=== PATIENT | female | born 1940 | race Caucasian/White ===

== ENCOUNTER 2023-10-19 02:52 | Emergency (ER) | payer MEDICARE, SELFPAY ==
[2023-10-19 02:53] VITALS: BMI 23.7
[2023-10-19 02:56] VITALS: BP 184/79
[2023-10-19 02:58] VITALS: BP 184/79
[2023-10-19 03:00] VITALS: BP 181/83
[2023-10-19 03:32] LABS: INR 1.04; PT 13.6 Sec (11.4-14.6)
[2023-10-19 03:38] LABS: % Eosinophils 5.3 % (0-6); % Immature Granulocytes 0.4 % (0-0.5); % Lymphocytes 36.2 % (20.5-51.1); % Monocytes 9.5 % (1.7-9.3); % Neutrophils 47.6 % (42.2-75.2); Absolute Basophils 0.1 10^3/uL (0-0.2); Absolute Eosinophils 0.4 10^3/uL (0-0.7); Absolute Lymphocytes 2.8 10^3/uL (1.2-3.4); Absolute Monocytes 0.7 10^3/uL (0.1-0.6); Absolute Neutrophils 3.7 10^3/uL (1.4-6.5); Hematocrit 26.6 % (37.0-47.0); Hemoglobin 9.9 g/dL (12.0-16.0); Mean Corp Hgb Conc. 37.2 g/dL (33.0-37.0); Mean Corpuscular Hgb 31.9 pg (27.0-31.0); Mean Corpuscular Volume 85.8 fL (81.0-99.0); Mean Platelet Volume 9.6 fL (7.4-10.4); Nucleated Red Blood Cells % 0 %; Platelet Count 175 10^3/uL (130-400); Red Cell Dist. Width 12.1 % (11.5-14.5); White Blood Cell Count 7.8 10^3/uL (4.8-10.8)
[2023-10-19 03:39] LABS: ALT (SGPT) 25 U/L (0-35); AST (SGOT) 38 U/L (14-36); Albumin 4.4 g/dl (3.5-5.0); Alkaline Phosphatase 97 U/L (38-126); Blood Urea Nitrogen 38 mg/dl (7-17); Calcium 10.3 mg/dl (8.4-10.2); Carbon Dioxide 19 mmol/L (22-30); Chloride 96 mmol/L (98-107); Estimated Creatinine Clearance 14 ml/min; Glucose 88 mg/dl (70-99); Potassium 4.2 mmol/L (3.5-5.1); Sodium 127 mmol/L (135-145); Total Bilirubin 0.3 mg/dl (0.2-1.3); eGFR 21.57
[2023-10-19 03:50] LABS: Troponin I 0.016 ng/ml
[2023-10-19 05:00] VITALS: BP 120/51
[2023-10-19 06:04] VITALS: BP 129/64
[2023-10-19 06:08] LABS: Troponin I 0.013 ng/ml
--- NOTE | 2023-10-19 06:26 | ED.GENMED ---
History of Present Illness
General
Chief Complaint: Chest Pain
Source: patient and family
Exam Limitations: none
Time Seen by Provider: 10/19/23 02:56
Nursing documentation reviewed up to this point in time: agreed with
History of Present Illness
History of Present Illness:
Pleasant 83-year-old female presents with chest pain in the upper left portion of her chest. She states that it radiates into her arm. She does report some shortness of breath. States that this feels like similar episodes of reflux. She took 324
mg of baby aspirin and came into the emergency department. She states that upon arrival symptoms had resolved.
Review of Systems
Review of Systems
Allergies reviewed?: Yes
Other source history: family
All Other Systems: ROS reviewed and negative except as documented in HPI and ROS
Constitutional: Reports no symptoms
EENT: Reports no symptoms
Respiratory: Reports no symptoms
Cardiac: Reports chest pain
ABD/GI: Reports no symptoms
: Reports no symptoms
Musculoskeletal: Reports no symptoms
Skin: Reports no symptoms
Neurological: Reports no symptoms
Endocrine: Reports no symptoms
Hematologic/Lymphatic: Reports no symptoms
Psychiatric: Reports no symptoms
Phy Exam
General Physical Exam
General Presentation: well appearing and no apparent distress
General Skin: warm and dry
General Habitus: normal
General Mental: alert
General Hydration: appears well hydrated
ENT Exam
ENT Exam: EOMI, pharynx normal, neck supple and normocephalic
Eye Exam
Eye Exam: PERRL, cornea clear and conjunctiva normal
Cardiovascular Exam
Cardiovascular Exam: regular rate/rhythm, no edema, no murmur and normal peripheral pulses
Pulmonary Exam
Pulmonary Exam: lungs clear, no respiratory distress, no rales, no crackles, no rhonchi, no stridor, no wheezing and no cough
Gastrointestinal Exam
Gastrointestinal Exam: normal bowel sounds, non tender, soft, no organomegaly, no pulsatile mass and non distended
Neurological Exam
Neurological Exam: alert, oriented x3, no motor deficits and speech normal
Musculoskeletal Exam
Musculoskeletal Exam: full ROM and no edema
Skin Exam
Skin Exam: normal color, warm/dry, no rash and no petechia
Psychiatric Exam
Psychiatric Exam: normal mood/affect
Scores
Heart Score for Chest Pain Patients
STEMI patient?: No
History: Slightly or Non-Suspicious
ECG: Normal
Age: >/= 65 years
Risk Factors: 1 or 2 Risk Factors
Troponin: </= Normal Limit
Heart Score for Chest Pain Patients: 3
Heart Score Risk: 2.5% MACE over next 6 weeks
Course
Orders/Labs/Results
Orders:
Orders
10/19/23 02:54
Electrocardiogram (*1) Urgent
Reason for Study: Chest Pain
Cardiac Monitoring- Treatment ONCE
EKG- Treatment ONCE
IV Insert/Care/Rem.- Treatment PRN
O2 Therapy [RESP] Urgent
Titrate/Wean O2 to maintain O2 sat greater than (%): 90
Special Instructions: Maintain sats >/=90%
Pulse Ox/spot Check [RESP] Urgent
Quantity: 1
Special Instructions: ON ROOM AIR
10/19/23 02:59
Complete Blood Count/With Diff Urgent
Comprehensive Metabolic Panel Urgent
Prothrombin Time Urgent
Troponin I Urgent
10/19/23 04:12
EKG- Treatment ONCE
10/19/23 04:42
CR Chest - 2 Views Urgent
Comment:
Reason For Exam: cp
10/19/23 05:30
Electrocardiogram (*1) Urgent
Reason for Study: Chest Pain
10/19/23 05:37
Troponin I Urgent
Abnormal Lab Results
10/19/23
02:59
RBC 3.10 L 10^6/uL
(4.20-5.40)
Hgb 9.9 L g/dL
(12.0-16.0)
Hct 26.6 L %
(37.0-47.0)
MCH 31.9 H pg
(27.0-31.0)
MCHC 37.2 H g/dL
(33.0-37.0)
Absolute Monos (auto) 0.7 H 10^3/uL
(0.1-0.6)
Monocytes % 9.5 H %
(1.7-9.3)
Sodium 127 L mmol/L
(135-145)
Chloride 96 L mmol/L
(98-107)
Carbon Dioxide 19 L mmol/L
(22-30)
BUN 38 H mg/dl
(7-17)
Creatinine 2.2 H mg/dL
(0.6-1.0)
Calcium 10.3 H mg/dl
(8.4-10.2)
AST 38 H U/L
(14-36)
10/19/23 02:59
10/19/23 02:59
Vital Signs
Initial and Last Documented VS:
Initial Vital Signs
Temp Pulse Resp Pulse Ox
97.7 F 62 19 95
10/19/23 02:54 10/19/23 02:54 10/19/23 02:54 10/19/23 02:54
Last Documented Vital Signs
Temp Pulse Resp BP Pulse Ox
97.7 F 72 20 132/64 98
10/19/23 02:54 10/19/23 07:31 10/19/23 07:31 10/19/23 07:31 10/19/23 07:31
*Radiology
Radiology exam reviewed: all reviewed NAD by ED Provider
*Pulse Oximetry
Patient hypoxic: no
*Critical Care Note
Total Time (30-74mins, 75-104mins- exclusive of procedures): Not Applicable
Update Note
Update Note:
EKG shows normal sinus rhythm rate of 61 with normal intervals, normal axis. No evidence of acute ischemia present. When compared with previous EKG, no obvious interval change noted.
ED Attending Note
-
Portions of this chart may have been created with voice recognition software.� Occasional wrong word or��sound alike� substitutions may have occurred due to the inherent limitations of voice recognition software.
Discharge Plan
Departure
Patient Disposition: Home (Routine Discharge)
Date of Disposition: 10/19/23
Time of Disposition: 06:26
Patient with high blood pressure during this ER visit?: Yes
Condition: Good
Discharge Problem:
Chest pain
Instructions: Chest Pain CBC Follow Up
Prescriptions:
No Action
multivitamin 1 EACH tablet
1 ea PO DAILY
pravastatin 40 MG tablet
40 mg PO HS
lidocaine-prilocaine 5 GRAM/TUBE cream
1 applic topical DAILY
levothyroxine 25 MCG tablet
25 mcg PO DAILY
nortriptyline [Pamelor] 25 MG capsule
125 mg PO DAILY
amlodipine 10 MG tablet
10 mg PO DAILY
Acidophilus 1 CAP capsule
1 cap PO BID
lamotrigine [Lamictal ODT] 100 MG tablet,disintegrating
100 mg PO BID
ascorbic acid (vitamin C) [Vitamin C] 500 mg Tablet,Chewable
500 mg PO DAILY
cholecalciferol (vitamin D3) [Vitamin D3] 25 mcg (1,000 unit) Capsule
25 mcg PO DAILY
[place] Saline Gel [place],Non-Aerosol
1 spray INTRANASAL DAILY
Fish Oil 1,600-500-800 mg/5 mL Liquid
5 ml PO DAILY
cyanocobalamin (vitamin B-12) 1,000 mcg Lozenge
1,000 mcg SUBLINGUAL DAILY
Artificial Tears
BID
metoprolol tartrate 25 mg Tablet
37.5 mg PO BID Qty: 60 0RF
Rx Instructions:
Dose increased on this admission
Referrals:
Julianne Frazier MD [Family Provider] -
Activity Restrictions/Additional Instructions:
It was a pleasure meeting you and taking part in your care. We hope for your continued healing and wellness.
Please read discharge instructions in their entirety. However, they are for general education and may not describe your exact diagnosis at discharge. Information on your ER visit and medical conditions were discussed with you along with appropriate
follow up information...
If indicated, please take your medications as instructed and indicated on discharge paperwork.
Please schedule a follow up appointment as directed. Call to schedule an appointment
Please return to the emergency department with ANY change in, persisting, or worsening of symptoms. If any of your symptoms do not improve, or persist, or become more severe within 6-12 hours, please return to the emergency department for further
care.
Please return to the emergency department if you develop a headache, neck pain/stiffness, fever greater than 100.4F, chest pain, shortness of breath, persistent nausea, vomiting, slurred speech, difficulty walking, numbness/tingling, weakness, signs
of infection or any other symptoms that are worrisome to you.
If you have any questions or concerns please do not hesitate to call the Hospital at or E-mail me directly at [email or web address]
Interventions
Interventions:
*Risk Screen - Suicide Last Done: 10/19/23 02:54
*General Assessment Last Done: 10/19/23 02:54
*Neglect/Abuse Screening Last Done: 10/19/23 02:54
*ED COVID-19 Vaccine History Last Done: 10/19/23 02:54
*Nursing Disposition Last Done: 10/19/23 07:31
ED- Cardiac Assessment Last Done: 10/19/23 05:16
Discharge Date and Time
Discharge Date/Time: 10/19/23 07:31
Print Language: MAORI
[2023-10-19 07:31] VITALS: BP 132/64
== END 2023-10-19 07:31 | disposition home or self-care (01) ==
LOC: EMR 02:52
PROVIDERS: EMERGENCY PHYSICIAN Student in an Organized Health Care Education/Training Program; FAMILY PHYSICIAN Internal Medicine Geriatric Medicine
DX: R07.89 Other chest pain (principal); R06.02 Shortness of breath
CPT/HCPCS: 99283; 71046; 80053; 84484; 85025; 85610; 93005

== ENCOUNTER 2024-07-07 18:01 | Emergency (ER) | payer MEDICARE, SELFPAY ==
[2024-07-07 18:15] VITALS: BP 172/78
[2024-07-07 18:42] LABS: % Basophils 0.8 % (0-2); % Eosinophils 4.4 % (0-6); % Immature Granulocytes 0.2 % (0-0.5); % Lymphocytes 27.6 % (20.5-51.1); % Monocytes 8.7 % (1.7-9.3); % Neutrophils 58.3 % (42.2-75.2); Absolute Basophils 0.1 10^3/uL (0-0.2); Absolute Eosinophils 0.3 10^3/uL (0-0.7); Absolute Lymphocytes 1.8 10^3/uL (1.2-3.4); Absolute Monocytes 0.6 10^3/uL (0.1-0.6); Absolute Neutrophils 3.7 10^3/uL (1.4-6.5); Hematocrit 29.9 % (37.0-47.0); Hemoglobin 10.3 g/dL (12.0-16.0); Mean Corp Hgb Conc. 34.4 g/dL (33.0-37.0); Mean Corpuscular Hgb 32.7 pg (27.0-31.0); Mean Corpuscular Volume 94.9 fL (81.0-99.0); Mean Platelet Volume 9.1 fL (7.4-10.4); Nucleated Red Blood Cells % 0 %; Platelet Count 199 10^3/uL (130-400); Red Blood Cell Count 3.15 10^6/uL (4.20-5.40); Red Cell Dist. Width 12.3 % (11.5-14.5); White Blood Cell Count 6.4 10^3/uL (4.8-10.8)
[2024-07-07 18:58] LABS: Blood Urea Nitrogen 49 mg/dl (7-17); Calcium 10.1 mg/dl (8.4-10.2); Carbon Dioxide 20 mmol/L (22-30); Chloride 99 mmol/L (98-107); Glucose 91 mg/dl (70-99); Sodium 133 mmol/L (135-145); eGFR 20.32
[2024-07-07 19:04] LABS: Troponin I < 0.012 ng/ml
--- NOTE | 2024-07-07 20:17 | ED.GENMED ---
History of Present Illness
General
Chief Complaint: Chest Pain
Time Seen by Provider: 07/07/24 20:08
History of Present Illness
History of Present Illness:
84-year-old female presents the emergency department for evaluation of central chest pain that began approximately 3 hours prior to, she states she was shopping had taken her To the vet that she had to carry her cat with her at all times. States
that after completing all of her chores she felt chest pain lasting approximately 30 minutes to the central chest but this resolved with rest. Has not had any pain since arriving to the ED. No associated shortness of breath or fevers. No prior
history of CAD.
Review of Systems
Review of Systems
Allergies reviewed?: Yes
All Other Systems: ROS reviewed and negative except as documented in HPI and ROS
Phy Exam
Physical Exam
Physical Exam:
GEN: Well appearing, NAD, WDWN
HEENT: Oral mucosa moist, no scleral icterus
Cardiac: Regular rate and rhythm, no murmurs
Lung: No respiratory distress, no tachypnea, lungs clear to auscultation bilaterally
MSK: No gross deformity or injuries
Skin: Good color, no pallor or jaundice, no rashes
Neuro: AO x3, moves all extremities freely
Psych: Calm, cooperative
Scores
Heart Score for Chest Pain Patients
STEMI patient?: No
History: Moderately Suspicious
ECG: Normal
Age: >/= 65 years
Risk Factors: 1 or 2 Risk Factors
Troponin: </= Normal Limit
Heart Score for Chest Pain Patients: 4
Heart Score Risk: 20.3% MACE over next 6 weeks
Course
Orders/Labs/Results
Orders:
Orders
07/07/24 18:03
ECG [Electrocardiogram (*1)] Urgent
Reason for Study: Chest Pain
EKG- Treatment ONCE
07/07/24 18:26
Basic Metabolic Panel Urgent
Complete Blood Count/With Diff Urgent
Troponin I Urgent
Abnormal Lab Results
07/07/24
18:26
RBC 3.15 L 10^6/uL
(4.20-5.40)
Hgb 10.3 L g/dL
(12.0-16.0)
Hct 29.9 L %
(37.0-47.0)
MCH 32.7 H pg
(27.0-31.0)
Sodium 133 L mmol/L
(135-145)
Carbon Dioxide 20 L mmol/L
(22-30)
BUN 49 H mg/dl
(7-17)
Creatinine 2.3 H mg/dL
(0.6-1.0)
07/07/24 18:26
07/07/24 18:26
Vital Signs
Initial and Last Documented VS:
Initial Vital Signs
Temp Pulse Resp BP Pulse Ox
97.9 F 62 20 172/78 100
07/07/24 18:15 07/07/24 18:15 07/07/24 18:15 07/07/24 18:15 07/07/24 18:15
Last Documented Vital Signs
Temp Pulse Resp BP Pulse Ox
97.9 F 62 20 172/78 100
07/07/24 18:15 07/07/24 18:15 07/07/24 18:15 07/07/24 18:15 07/07/24 18:15
MDM/Problems Addressed
MDM/Problems Addressed:
Patient presenting with acute chest pain that seem to be exertional in nature. She has not had any further pain here. Initial EKG and lab work is reassuring although specimen was hemolyzed and we could not result a potassium. I evaluated the
patient she was quite insistent on being discharged home. I educated her that given the acute nature of her pain would be reasonable for her to remain in the emergency department for repeat cardiac enzyme testing and repeat EKG however she
declines. As she is pain-free and her symptoms most closely mimic stable angina this is not unreasonable however she is encouraged to follow-up with closely with her mechanical system technician who is through [facility]. Encouraged ED return if symptoms
worsening.
*Critical Care Note
Total Time (30-74mins, 75-104mins- exclusive of procedures): Not Applicable
ED Attending Note
-
Portions of this chart may have been created with voice recognition software.� Occasional wrong word or��sound alike� substitutions may have occurred due to the inherent limitations of voice recognition software.
Discharge Plan
Departure
Patient Disposition: Home (Routine Discharge)
Date of Disposition: 07/07/24
Time of Disposition: 20:17
Patient with high blood pressure during this ER visit?: No
Discharge Problem:
Chest pain
Instructions: Chest Pain NON-[facility] Senior Ssis Developer Follow Up
Prescriptions:
No Action
multivitamin 1 EACH tablet
1 ea PO DAILY
pravastatin 40 MG tablet
40 mg PO HS
lidocaine-prilocaine 5 GRAM/TUBE cream
1 applic topical DAILY
levothyroxine 25 MCG tablet
25 mcg PO DAILY
nortriptyline [Pamelor] 25 MG capsule
125 mg PO DAILY
amlodipine 10 MG tablet
10 mg PO DAILY
Acidophilus 1 CAP capsule
1 cap PO BID
lamotrigine [Lamictal ODT] 100 MG tablet,disintegrating
100 mg PO BID
ascorbic acid (vitamin C) [Vitamin C] 500 mg Tablet,Chewable
500 mg PO DAILY
cholecalciferol (vitamin D3) [Vitamin D3] 25 mcg (1,000 unit) Capsule
25 mcg PO DAILY
[place] Saline Gel [place],Non-Aerosol
1 spray INTRANASAL DAILY
Fish Oil 1,600-500-800 mg/5 mL Liquid
5 ml PO DAILY
cyanocobalamin (vitamin B-12) 1,000 mcg Lozenge
1,000 mcg SUBLINGUAL DAILY
Artificial Tears
BID
metoprolol tartrate 25 mg Tablet
37.5 mg PO BID Qty: 60 0RF
Rx Instructions:
Dose increased on this admission
Activity Restrictions/Additional Instructions:
We discussed that although your testing is normal I did repeat blood work to reevaluate your heart enzymes however you opted to be discharged. As your pain is resolved this is not unreasonable however you were made aware of the risk that a cardiac
event could have been missed. Given that your symptoms occurred with exertion only and resolved at rest this certainly could represent stable angina, indicating developing coronary artery disease. Please call your mechanical system technician for follow-up
tomorrow. Return to the emergency department with any worsening symptoms
Interventions
Interventions:
*Risk Screen - Suicide Last Done: 07/07/24 18:15
*General Assessment Last Done: 07/07/24 18:15
*Neglect/Abuse Screening Last Done: 07/07/24 18:15
*Nursing Disposition Last Done: 07/07/24 20:36
Discharge Date and Time
Discharge Date/Time: 07/07/24 20:36
Print Language: TONGAN
== END 2024-07-07 20:36 | disposition home or self-care (01) ==
LOC: EMR 18:01
PROVIDERS: Emergency Medicine; EMERGENCY PHYSICIAN Emergency Medicine; FAMILY PHYSICIAN Internal Medicine Geriatric Medicine
DX: R07.89 Other chest pain (principal)
CPT/HCPCS: 99284; 80048; 84484; 85025; 93005

== ENCOUNTER 2024-07-07 22:19 | Emergency (ER) | payer OTHER, SELFPAY ==
[2024-07-07 22:24] VITALS: BP 201/86
[2024-07-07 22:27] VITALS: BMI 22.0
[2024-07-07 22:31] LABS: % Basophils 1.3 % (0-2); % Eosinophils 4.1 % (0-6); % Immature Granulocytes 0.1 % (0-0.5); % Lymphocytes 26.8 % (20.5-51.1); % Monocytes 8.7 % (1.7-9.3); Absolute Basophils 0.1 10^3/uL (0-0.2); Absolute Eosinophils 0.3 10^3/uL (0-0.7); Absolute Lymphocytes 1.8 10^3/uL (1.2-3.4); Absolute Monocytes 0.6 10^3/uL (0.1-0.6); Hematocrit 30.6 % (37.0-47.0); Hemoglobin 10.6 g/dL (12.0-16.0); Mean Corp Hgb Conc. 34.6 g/dL (33.0-37.0); Mean Corpuscular Hgb 33.1 pg (27.0-31.0); Mean Corpuscular Volume 95.6 fL (81.0-99.0); Mean Platelet Volume 9.5 fL (7.4-10.4); Nucleated Red Blood Cells % 0 %; Platelet Count 224 10^3/uL (130-400); Red Cell Dist. Width 12.3 % (11.5-14.5); White Blood Cell Count 6.8 10^3/uL (4.8-10.8)
[2024-07-07 22:44] VITALS: BP 186/86
[2024-07-07] MEDS: LOPRESSOR 50 MG PO (22:55)
[2024-07-07 22:58] LABS: Troponin I < 0.012 ng/ml
[2024-07-07 23:06] LABS: ALT (SGPT) 25 U/L (0-35); AST (SGOT) 30 U/L (14-36); Albumin 4.9 g/dl (3.5-5.0); Alkaline Phosphatase 78 U/L (38-126); Blood Urea Nitrogen 46 mg/dl (7-17); Calcium 10.7 mg/dl (8.4-10.2); Carbon Dioxide 19 mmol/L (22-30); Chloride 103 mmol/L (98-107); Estimated Creatinine Clearance 11 ml/min; Glucose 127 mg/dl (70-99); Potassium 4.4 mmol/L (3.5-5.1); Sodium 136 mmol/L (135-145); Total Bilirubin 0.4 mg/dl (0.2-1.3); Total Protein 7.8 g/dl (6.3-8.2); eGFR 17.54
[2024-07-07 23:45] VITALS: BP 192/89
[2024-07-08] VITALS: BP 177/76
--- NOTE | 2024-07-08 00:18 | ED.GENMED ---
History of Present Illness
General
Chief Complaint: Chest Pain
Source: patient
Exam Limitations: none
Time Seen by Provider: 07/07/24 22:32
Nursing documentation reviewed up to this point in time: agreed with
History of Present Illness
History of Present Illness:
84-year-old female past medical history of hypertension of lipidemia, CKD, hypothyroidism presenting to the emergency department today for the second time to get her second troponin level. She claims that she was here earlier for chest pain had a
normal workup but was pending second troponin but went to believe prior to this result. She decided that she wanted to come back to get the second troponin to be safe. She denies any worsening symptoms. Currently with no chest pain. She did not
take her evening medications and did not take her evening blood pressure meds. Denies nausea vomiting, diaphoresis.
Review of Systems
Review of Systems
Allergies reviewed?: Yes
All Other Systems: ROS reviewed and negative except as documented in HPI and ROS
Phy Exam
Physical Exam
Physical Exam:
GENERAL: Alert , in no apparent distress
EYE: pupils equal and reactive
NECK: Supple, no significant adenopathy.
ENT: o/p clr, mmm.
CARDIAC: Regular rate and rhythm .
LUNGS: Clear breath sounds bilaterally, no acute respiratory distress, no wheezes/rales/rhonchi
ABDOMEN: Soft, without focal tenderness, no r/g, no cvat
NEUROLOGICAL: Alert and oriented, no focal neuro deficits
SKIN: Warm and dry, skin intact.
MUSCULOSKELETAL: No edema, well perfused.
PSYCH: Normal and appropriate interaction.
Scores
Heart Score for Chest Pain Patients
STEMI patient?: No
History: Slightly or Non-Suspicious
ECG: Normal
Age: >/= 65 years
Risk Factors: >/= 3 Risk Factors or History of CAD
Troponin: </= Normal Limit
Heart Score for Chest Pain Patients: 4
Heart Score Risk: 20.3% MACE over next 6 weeks
Course
Orders/Labs/Results
Orders:
Orders
07/07/24 22:20
Electrocardiogram (*1) Urgent
Reason for Study: Chest Pain
Cardiac Monitoring- Treatment ONCE
EKG- Treatment ONCE
07/07/24 22:22
CMP [Comprehensive Metabolic Panel] Urgent
07/07/24 22:23
Complete Blood Count/With Diff Urgent
Troponin I Urgent
07/07/24 22:47
Metoprolol [Lopressor] 50 mg PO NOW STA
Abnormal Lab Results
07/07/24 07/07/24
22:22 22:23
RBC 3.20 L 10^6/uL
(4.20-5.40)
Hgb 10.6 L g/dL
(12.0-16.0)
Hct 30.6 L %
(37.0-47.0)
MCH 33.1 H pg
(27.0-31.0)
Carbon Dioxide 19 L mmol/L
(22-30)
BUN 46 H mg/dl
(7-17)
Creatinine 2.6 H mg/dL
(0.6-1.0)
Glucose 127 H mg/dl
(70-99)
Calcium 10.7 H mg/dl
(8.4-10.2)
07/07/24 22:23
07/07/24 22:22
Vital Signs
Initial and Last Documented VS:
Initial Vital Signs
Resp Pulse Ox
21 100
07/07/24 22:23 07/07/24 22:23
Last Documented Vital Signs
Temp Pulse Resp BP Pulse Ox
98.1 F 68 17 177/76 100
07/07/24 22:24 07/08/24 00:00 07/08/24 00:00 07/08/24 00:00 07/07/24 22:24
MDM/Problems Addressed
MDM/Problems Addressed:
84-year-old female presenting to the emergency department today with concerns of chest discomfort. Had similar symptoms earlier today had normal workup. Left prior to second troponin level initially. Patient returned blood pressure was elevated
however she did not take her evening metoprolol. She was given a dose of this here with improving blood pressure into the 170s over 70s. Labs without significant changes from baseline troponin negative EKG with no changes. Low risk for ACS at
this time stable for outpatient follow-up. Return precautions given.
*Critical Care Note
Total Time (30-74mins, 75-104mins- exclusive of procedures): Not Applicable
ED Attending Note
-
Portions of this chart may have been created with voice recognition software.� Occasional wrong word or��sound alike� substitutions may have occurred due to the inherent limitations of voice recognition software.
Discharge Plan
Departure
Patient Disposition: Home (Routine Discharge)
Date of Disposition: 07/08/24
Time of Disposition: 00:19
Patient with high blood pressure during this ER visit?: No
Condition: Good
Covid-19: Not Applicable
Discharge Problem:
Chest pain
Instructions: Chest Pain CBC Follow Up
Prescriptions:
No Action
multivitamin 1 EACH tablet
1 ea PO DAILY
pravastatin 40 MG tablet
40 mg PO HS
lidocaine-prilocaine 5 GRAM/TUBE cream
1 applic topical DAILY
levothyroxine 25 MCG tablet
25 mcg PO DAILY
nortriptyline [Pamelor] 25 MG capsule
125 mg PO DAILY
amlodipine 10 MG tablet
10 mg PO DAILY
Acidophilus 1 CAP capsule
1 cap PO BID
lamotrigine [Lamictal ODT] 100 MG tablet,disintegrating
100 mg PO BID
ascorbic acid (vitamin C) [Vitamin C] 500 mg Tablet,Chewable
500 mg PO DAILY
cholecalciferol (vitamin D3) [Vitamin D3] 25 mcg (1,000 unit) Capsule
25 mcg PO DAILY
[place] Saline Gel [place],Non-Aerosol
1 spray INTRANASAL DAILY
Fish Oil 1,600-500-800 mg/5 mL Liquid
5 ml PO DAILY
cyanocobalamin (vitamin B-12) 1,000 mcg Lozenge
1,000 mcg SUBLINGUAL DAILY
Artificial Tears
BID
metoprolol tartrate 25 mg Tablet
37.5 mg PO BID Qty: 60 0RF
Rx Instructions:
Dose increased on this admission
Referrals:
Julianne Frazier MD [Family Provider] -
Activity Restrictions/Additional Instructions:
You came to the emergency department today with concerns of chest discomfort. Here you had a negative troponin level and unchanged EKG. Your kidney function test are at baseline your blood pressure was elevated but improving after receiving your
normal blood pressure medication please follow closely with cardiology. Return for any worsening, new or concerning symptoms.
Interventions
Interventions:
*Risk Screen - Suicide Last Done: 07/07/24 22:24
*General Assessment Last Done: 07/07/24 22:24
*Neglect/Abuse Screening Last Done: 07/07/24 22:24
*ED- Fall Risk Assessment Last Done: 07/07/24 22:24
*Nursing Disposition Last Done: 07/08/24 00:39
ED- Cardiac Assessment Last Done: 07/07/24 22:30
Discharge Date and Time
Print Language: [place]
== END 2024-07-08 00:40 | disposition home or self-care (01) ==
LOC: EMR 22:19
PROVIDERS: Emergency Medicine; EMERGENCY PHYSICIAN Emergency Medicine; FAMILY PHYSICIAN Internal Medicine Geriatric Medicine
DX: R07.89 Other chest pain (principal); I12.9 Hypertensive chronic kidney disease with stage 1 through stage 4 chronic kidney disease, or unspecified chronic kidney disease; N18.9 Chronic kidney disease, unspecified; E03.9 Hypothyroidism, unspecified; E78.5 Hyperlipidemia, unspecified; I25.10 Atherosclerotic heart disease of native coronary artery without angina pectoris
CPT/HCPCS: 80053; 84484; 85025; 93005; 99283; 99284

== ENCOUNTER 2024-12-12 14:44 | Emergency (ER) | payer OTHER, SELFPAY ==
[2024-12-12] VITALS (9 sets, daily range): BP systolic 154–209; BP diastolic 75–100; BMI 20.3
[2024-12-12 15:22] LABS: Hematocrit 27.8 % (37.0-47.0); Hemoglobin 9.4 g/dL (12.0-16.0); Mean Corp Hgb Conc. 33.8 g/dL (33.0-37.0); Mean Corpuscular Volume 94.9 fL (81.0-99.0); Nucleated Red Blood Cells % 0 %; Platelet Count 296 10^3/uL (130-400); Red Cell Dist. Width 13.4 % (11.5-14.5)
--- NOTE | 2024-12-12 15:46 | ED.GENMED ---
History of Present Illness
General
Chief Complaint: Suicidal Ideation
Source: patient and family
Exam Limitations: none
Time Seen by Provider: 12/12/24 15:19
History of Present Illness
History of Present Illness:
Patient brought in for ongoing depression. Patient states she has been depressed for a long time. However getting worse. She does not want to live. She does however denies suicidal ideation or plan. She has no acute medical complaints.
Past History
Past History
ED Past Medical History: HTN, Hypercholesterolemia, Psychiatric (Bipolar depression) and Other (Kidney disease)
ED Past Surgical History: Gynecological, Tonsilectomy and Other (Renal biopsy)
Phy Exam
Physical Exam
Physical Exam:
GENERAL: Alert and oriented in no apparent distress
EYE: Orbits normal.
NECK: Supple, no thyroid palpable
ENT: Pharynx without erythema
CARDIAC: Regular rate and rhythm without any obvious murmurs.
LUNGS: Clear breath sounds,normal
ABDOMEN: Soft, without focal tenderness or distention
NEUROLOGICAL: Alert and oriented , grossly non-focal
SKIN: Warm and dry, no rash or lesion, no discoloration, skin intact.
MUSCULOSKELETAL: No edema,no deformity.Good color
PSYCH: Operative. Slight flat affect
Course
Orders/Labs/Results
Orders:
Orders
12/12/24 15:01
1:1 Observation - Suicide/ Violent Behavior As Directed
Crisis Consult Urgent
Reason for Consult: SI
12/12/24 15:09
Complete Blood Count/With Diff Urgent
12/12/24 15:44
Alcohol Urgent
Basic Metabolic Panel Urgent
TSH Reflex To Free T4 Urgent
Comment: ADD ON
12/12/24 15:54
Add On- LAB Urgent
Tests Added?: tsh reflex t4
12/12/24 17:47
CT Head W/o Iv Contrast Urgent
Comment:
Reason For Exam: Change in mental status
12/12/24 17:56
COVID-19 Antigen Urgent
Source: Nasal Swab
Urinalysis Reflex To Culture Urgent
Date Specimen was Collected: 12/12/24
Time Specimen was Collected: 15:08
Urine Drug Abuse Screen Urgent
Date Specimen was Collected: 12/12/24
Time Specimen was Collected: 15:07
Urine Microscopic Reflex Cult Urgent
12/12/24 19:30
Metoprolol [Lopressor] 37.5 mg PO NOW STA
12/12/24 19:38
Lorazepam [Ativan] 1 mg PO NOW STA
Abnormal Lab Results
12/12/24 12/12/24 12/12/24
15: 15:44 17:56
RBC 2.93 L 10^6/uL
(4.20-5.40)
Hgb 9.4 L g/dL
(12.0-16.0)
Hct 27.8 L %
(37.0-47.0)
MCH 32.1 H pg
(27.0-31.0)
Absolute Lymphs (auto) 1.0 L 10^3/uL
(1.2-3.4)
Neutrophils % 77.6 H %
(42.2-75.2)
Lymphocytes % 13.2 L %
(20.5-51.1)
BUN 40 H mg/dl
(7-17)
Creatinine 2.3 H mg/dL
(0.6-1.0)
Ur Occult Blood Reflex 1+ A
(Negative)
Urine RBC 3-6 A /HPF
(0-2)
Urine Bacteria (Reflex) Few A
(Negative)
Urine Albumin (Reflex) 3+ A
(Neg - Trace)
Ur Tricyclics Screen Positive H
(Negative)
12/12/24 15:09
12/12/24 15:44
Vital Signs
Initial and Last Documented VS:
Initial Vital Signs
Temp Pulse Resp BP Pulse Ox
98.1 F 95 15 154/75 96
12/12/24 14:48 12/12/24 14:48 12/12/24 14:48 12/12/24 14:48 12/12/24 14:48
Last Documented Vital Signs
Temp Pulse Resp BP Pulse Ox
98.2 F 63 18 182/78 97
12/12/24 16:00 12/12/24 22:00 12/12/24 22:00 12/12/24 22:00 12/12/24 22:00
MDM/Problems Addressed
Differential Diagnosis Includes:
Highly doubt medical etiology for patient's symptoms. Check labs electrolytes urine. Crisis involved.
*Radiology
Radiology exam reviewed: radiology read reviewed (No acute findings)
*Pulse Oximetry
SaO2: 99
Oxygen Mode of Delivery: Room air
Patient hypoxic: no
*Critical Care Note
Total Time (30-74mins, 75-104mins- exclusive of procedures): Not Applicable
Data Reviewed
Review of Other/Old Records Reveals: Labs, Records and Testing
Update Note
Update Note:
Patient is remained medically stable and nontoxic. Renal insufficiency. Head CT negative. Thyroid stable. Electrolytes stable. Family in the room discussed what is going on with them. Awaiting placement. Blood pressure mildly elevated. Will
give her nighttime dose and a dose of Ativan for her getting somewhat anxious
ED Attending Note
-
Portions of this chart may have been created with voice recognition software.� Occasional wrong word or��sound alike� substitutions may have occurred due to the inherent limitations of voice recognition software.
Discharge Plan
Departure
Patient Disposition: Psych Facility
Date of Disposition: 12/12/24
Time of Disposition: 19:42
Discharge Problem:
Severe depression, Renal insufficiency, Hypertension
Prescriptions:
No Action
multivitamin 1 EACH tablet
1 ea PO DAILY
pravastatin 40 MG tablet
40 mg PO HS
levothyroxine 25 MCG tablet
25 mcg PO DAILY
nortriptyline [Pamelor] 25 MG capsule
125 mg PO DAILY
Acidophilus 1 CAP capsule
1 cap PO BID
lamotrigine [Lamictal ODT] 100 MG tablet,disintegrating
100 mg PO BID
ascorbic acid (vitamin C) [Vitamin C] 500 mg Tablet,Chewable
500 mg PO DAILY
cholecalciferol (vitamin D3) [Vitamin D3] 25 mcg (1,000 unit) Capsule
25 mcg PO DAILY
Gilchrist Saline Gel [place],Non-Aerosol
1 spray INTRANASAL DAILY
Fish Oil 1,600-500-800 mg/5 mL Liquid
5 ml PO DAILY
cyanocobalamin (vitamin B-12) 1,000 mcg Lozenge
1,000 mcg SUBLINGUAL DAILY
Artificial Tears
BID
metoprolol tartrate 25 mg Tablet
37.5 mg PO BID Qty: 60 0RF
Rx Instructions:
Dose increased on this admission
ferrous sulfate 325 mg (65 mg iron) Tablet
325 mg PO .THREE X WK
aspirin 81 mg Tablet,Chewable
81 mg PO .MON & FRI
coenzyme Q10 [CoQ-10] 100 mg Capsule
100 mg PO DAILY
Referrals:
Julianne Frazier MD [Family Provider, Internal Medicine]
Interventions
Interventions:
*Risk Screen - Suicide Last Done: 12/12/24 14:48
*General Assessment Last Done: 12/12/24 14:48
*Neglect/Abuse Screening Last Done: 12/12/24 14:48
*ED- Fall Risk Assessment Last Done: 12/13/24 00:47
*ED COVID-19 Vaccine History Last Done: 12/13/24 00:47
*Nursing Disposition Last Done: 12/13/24 00:47
ED-Psychological Assessment Last Done: 12/12/24 15:06
Discharge Date and Time
Discharge Date/Time: 12/13/24 00:49
Print Language: GERMAN
[2024-12-12 16:11] LABS: Blood Urea Nitrogen 40 mg/dl (7-17); Calcium 9.7 mg/dl (8.4-10.2); Carbon Dioxide 23 mmol/L (22-30); Chloride 107 mmol/L (98-107); Estimated Creatinine Clearance 13 ml/min; Glucose 89 mg/dl (70-99); Potassium 4.4 mmol/L (3.5-5.1); Sodium 136 mmol/L (135-145); eGFR 20.32
[2024-12-12 18:21] LABS: COVID-19 Antigen Negative (Negative)
[2024-12-12 18:25] LABS: Urine Character Clear (Clear)
[2024-12-12 18:38] LABS: Urine Squamous Cell 0-2 /LPF (Few)
[2024-12-12] MEDS: ATIVAN 1 MG PO (19:42)
[2024-12-12] MEDS: LOPRESSOR 37.5 MG PO (19:42)
--- NOTE | 2024-12-12 19:55 | EDRN ---
Report received, introduced myself to patient and family, went over med list with patient and family as well, patient is starting to get a little agitated, Dr. Pretty aware and spoke with the family, crisis also over to update the family at this
time.
--- NOTE | 2024-12-12 21:00 | EDRN ---
Patient's family was updated on acceptance to facility and ETA for departure is [phone]
--- NOTE | 2024-12-13 | EDRN ---
Patient ambulated to the restroom without difficulty and back into bed, 1:1 maintained
== END 2024-12-13 00:49 ==
LOC: EMR 14:44
PROVIDERS: EMERGENCY PHYSICIAN Emergency Medicine; FAMILY PHYSICIAN Internal Medicine Geriatric Medicine
DX: F31.9 Bipolar disorder, unspecified (principal); I10 Essential (primary) hypertension; N28.9 Disorder of kidney and ureter, unspecified; Z11.52 Encounter for screening for COVID-19
CPT/HCPCS: 99285; 70450; 80048; 80306; 81003; 81015; 82077; 84443; 85025; 87811